=== PATIENT | female | born 1925 | race Caucasian/White ===

== ENCOUNTER → 2016-06-29 | Outpatient (CLI) | payer MEDICARE, OTHER ==
[~2016-06-29] MED LIST: ARIMIDEX1 MG PO; ASPIRIN PO; AUGMENTIN PO; BENICAR20 MG PO; CRESTOR PO; KEFLEX500 M1 PO; LEXAPRO PO; LISINOPRIL PO; LORTAB 10/500 T1 TAB PO; PLAVIX PO; TRIAMCINOLONE; TYLOX 5/500 CAP1 CAP PO; ULTRAM PO; ZETIA PO
--- NOTE | ~2016-06-29 | CT71 ---
[facility] A Service [facility] RADIOLOGY TEXT RESULTS PATIENT: POP LIZARRAGA LOCATION: [facility] : [birth year] UNIT #: [id number] AGE: [address]: Jaylen Diaz MD SEX: F ORDER DR: [id number] [address] [id number] MR#: [id number] Acc #: [id number] NAME: POP LIZARRAGA : 1925 SEX: F STUDY DATE/TIME: 06/29/2016 15:12 UNIT: [facility] ROOM: STUDY DESCRIPTION: CT Head Wo Contrast Attending Physician: Jaylen Diaz M.D. Referring Physician: Jaylen Diaz M.D. Ordering Physician: Jaylen Diaz M.D. Primary Care Physician: Jaylen Diaz M.D. MEDICAL IMAGING REPORT This report is preliminary unless electronic signature is present. EXAM CT brain without contrast media. DATE OF EXAM 06/29/2016 COMPARISON 03/30/2015 HISTORY SUPPLIED Confusion, memory loss and dizziness for 1 year. TECHNIQUE Axial imaging of the brain was performed without contrast. NOTE: This CT exam was performed with one or more of the following radiation dose reduction techniques: automatic exposure control, adjustment of mA and/or kV according to patient size, and iterative reconstruction. FINDINGS There is generalized enlargement of the ventricles and CSF-containing spaces. No intra or extraaxial mass lesions, fluid collections or mass effect are seen. No focal low attenuation or hemorrhage or edema. There is diffuse low attenuation in the periventricular white matter bilaterally. Bone windows are reviewed. These are normal. CONCLUSION Rather marked generalized atrophy. No acute intracranial findings or significant changes since March 2015. Dictated by... Toño Espinoza M.D. [facility] A Service [facility] RADIOLOGY TEXT RESULTS PATIENT: POP LIZARRAGA LOCATION: [facility] : [birth year] UNIT #: [id number] AGE: [address]: Jaylen Diaz MD SEX: F ORDER DR: THIS IS AN ELECTRONICALLY VERIFIED REPORT Toño Espinoza M.D. at 07/02/2016 4:52 PM ROE/paul TD: 06/29/2016 21:59 JOB #: [id number] MEDICAL IMAGING REPORT Page 1 of 1
[2016-06-29 15:00] LABS: POC - CREATININE 1.1 mg/dL (0.44-1.03)
== END | disposition home or self-care (01) ==
LOC: SCT 14:22
PROVIDERS: Internal Medicine
DX: R42 Dizziness and giddiness (principal); R41.0 Disorientation, unspecified; R41.3 Other amnesia; G31.9 Degenerative disease of nervous system, unspecified
CPT/HCPCS: 70450; 82565